=== PATIENT | female | born 1950 | race American Indian/Alaskan Native ===

== ENCOUNTER 2016-12-04 19:12 | Observation (INO) | payer MEDICARE, OTHER ==
[2016-12-04] MEDS ORDERED: Albuterol-Ipratrop 3 mg / 0.5 (3 ml) UD IH STA (19:40)
--- NOTE | 2016-12-04 19:49 | ED PDOC ---
Arrival/HPI <Connor Britt - Last Filed: 12/04/16 21:14> - General Historian: Patient, Family - History of Present Illness Time/Duration: > week Symptom Onset: Gradual Symptom Course: Worsening Quality: Unable to Describe Severity Level: Moderate, Severe <Elisabeth Augustin - Last Filed: 12/04/16 21:36> - General Chief Complaint: Shortness Of Breath Time Seen by Provider: 12/04/16 19:16 - History of Present Illness Narrative History of Present Illness (Text): 12/04/16 19:45 65F w/PMH sig for DM, HTN, CAD s/p stents, LBP w/SC defibrillator, obesity, HLD , MD x 2, TIA x 9, arthritis, bursitis, peripheral neuropathy, hx sepsis evaluated for SOB x 1 week. Pt states that she was seen/evaluated by PMD 1 week ago with dx of URI and Rx for cough syrup. Pt reports that the cough syrup made her feel "loopy" so she stopped taking it. Her breathing worsened over last 24H, pt was not able to lay flat without severe SOB. SOB aggravated by movement. Admits to decreased appetite, urinary incontinence (copious, clear), multiple episodes of emesis after PO intake (non bloody), productive cough ( yellow thick mucus), stabbing throat pain with cough, fatigue, generalized muscle weakness, decreased ambulation, insomnia, numbness/tingling of extremities (chronic) and diaphoresis. Denies fevers, chills, MAZA, Chest pain, ab pain. PMH: DM, HTN, CAD s/p stents, LBP w/SC defibrillator, obesity, HLD, MD x 2, TIA x 9, arthritis, bursitis, peripheral neuropathy, hx sepsis, Iesha's syndrome PSH: Spinal cord defibrillator, cardiac stents, R eye surgery, L ankle surgery, R ovarian cyst surgery All: Lyrica, pregabalin SH: Admits to ~1ppd x multiple years, denies ETOH or illicit drug use PMD: Ingram (Elisabeth Augustin) Modifying Factors (Text): 12/04/16 19:45 Sitting up makes breathing better (Elisabeth Augustin) Associated Symptoms (Text): 12/04/16 19:44 cough, throat pain with coughing, decreased ambulation, fatigue, weakness, decreased appetite, nausea/vomiting, orthopnea (Elisabeth Augustin) Past Medical History - Provider Review Nursing Documentation Reviewed: Yes - Travel History Have you recently traveled outside [place] w/in the past 3 mons?: Yes - Infectious Disease Hx of Infectious Diseases: None - Reproductive Menopause: Yes - Cardiac Hx Cardiac Disorders: Yes (CAD, ami stemi 06/2013, mi x3) Hx Angina: Yes Hx Circulatory Problems: Yes Hx Hypertension: Yes Hx Pacemaker: No - Pulmonary Hx Respiratory Disorders: No - Neurological Hx Neurological Disorder: No HX Cerebrovascular Accident: Yes (x9 no deficits) Other/Comment: 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, heuropathy hands and legs - HEENT Hx HEENT Disorder: No (RIGHT EYE SURGERY -LAZY EYE) Other/Comment: 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, pt c/o teeth are brreaking since 2012 - Renal Hx Renal Disorder: No - Endocrine/Metabolic Hx Endocrine Disorders: Yes Hx Diabetes Mellitus Type 1: Yes (dx 12/2012) Other/Comment: was in a diabetic coma 9 days 2013 - Hematological/Oncological Hx Blood Disorders: No - Integumentary Hx Dermatological Disorder: No - Musculoskeletal/Rheumatological Hx Falls: No - Gastrointestinal Hx Gastrointestinal Disorders: No - Psychiatric Hx Psychophysiologic Disorder: No Hx Substance Use: No - Surgical History Hx Cardiac Catheterization: Yes Hx Musculoskeletal Surgery: Yes (LEFT ANKLE SURGERY) Other/Comment: hardware removed left ankle, ovarian cyst removed, spinal cord implant styimulator at [facility] [address] sow - Anesthesia Hx Anesthesia Reactions: Yes Hx Malignant Hyperthermia: No - Suicidal Assessment Feels Threatened In Home Enviroment: No <Elisabeth Augustin - Last Filed: 12/04/16 21:36> Family/Social History - Physician Review Nursing Documentation Reviewed: Yes Family/Social History: No Known Family HX Smoking Status: Heavy Smoker > 10 Cigarettes Daily Hx Alcohol Use: No Hx Substance Use: No <Elisabeth Augustin - Last Filed: 12/04/16 21:36> Allergies/Home Meds <Connor Britt - Last Filed: 12/04/16 21:14> <Elisabeth Augustin - Last Filed: 12/04/16 21:36> Allergies/Adverse Reactions: Allergies pregabalin [From Lyrica] Allergy (Verified 12/04/16 19:27) ANGIOEDEMA Home Medications: Home Meds Medication Instructions Recorded Confirmed Clopidogrel [Plavix] 75 mg PO DAILY 10/22/14 12/04/16 Allopurinol [Zyloprim] 100 mg PO DAILY 12/04/16 12/04/16 Aspirin [Ecotrin] 81 mg PO DAILY 12/04/16 12/04/16 Biotin 5,000 mcg PO DAILY 12/04/16 12/04/16 Cyanocobalamin [Vitamin B12 1000 2,500 mcg PO QWK 12/04/16 12/04/16 mcg Tab] Gabapentin [Neurontin] 600 mg PO DAILY 12/04/16 12/04/16 Lactobacillus Combination No.8 1 each PO DAILY 12/04/16 12/04/16 [Adult Probiotic] Magnesium Oxide [Pharmassure 500 mg PO DAILY 12/04/16 12/04/16 Magnesium] Metoprolol Tartrate [Lopressor] 50 mg PO BID 12/04/16 12/04/16 Omeprazole 40 mg PO DAILY 12/04/16 12/04/16 Simvastatin [Zocor] 20 mg PO DAILY 12/04/16 12/04/16 Sitagliptin Phos/Metformin HCl 1 each PO DAILY 12/04/16 12/04/16 [Janumet 50-1,000 mg Tablet] Valsartan 320 mg PO DAILY 12/04/16 12/04/16 Review of Systems - Physician Review All systems were reviewed & negative as marked: Yes - Review of Systems Constitutional: Fatigue. absent: Normal, Fevers Eyes: absent: Vision Changes ENT: Sore Throat. absent: Normal, Rhinorrhea Respiratory: SOB, Cough, Sputum. absent: Normal, Wheezing Cardiovascular: Orthopnea. absent: Normal, Chest Pain, Palpitations Gastrointestinal: Nausea, Vomiting, Appetite Changes. absent: Normal, Abdominal Pain, Constipation, Diarrhea, Hematochezia, Hematemesis Genitourinary Female: Frequency, Other (urinary incontinence) Musculoskeletal: Myalgias Skin: Normal. absent: Rash Neurological: Focal Weakness (Right eye muscles (chronic)). absent: Headache, Dizziness Endocrine: Diaphoresis, Polyuria. absent: Normal <Elisabeth Augustin - Last Filed: 12/04/16 21:36> Physical Exam Vital Signs Reviewed: Yes Temperature: Afebrile Blood Pressure: Hypertensive Pulse: Regular Respiratory Rate: Normal Appearance: Positive for: Non-Toxic, Comfortable Pain Distress: Mild Mental Status: Positive for: Alert and Oriented X 3 - Systems Exam Head: Present: Atraumatic, Normocephalic Pupils: Present: PERRL Extroacular Muscles: No: EOMI (Right eye ptosis) Conjunctiva: Present: Normal Mouth: Present: Moist Mucous Membranes, Normal Lips, Normal Teeth Nose (External): Present: Atraumatic Neck: Present: Normal Range of Motion. No: MIDLINE TENDERNESS, Paraspinal Tenderness Respiratory/Chest: Present: Good Air Exchange, Decreased Breath Sounds, Rales ( at bases). No: Clear to Auscultation, Respiratory Distress, Accessory Muscle Use, Wheezes, Rhonchi Cardiovascular: Present: Regular Rate and Rhythm, Normal S1, S2. No: Murmurs Abdomen: Present: Normal Bowel Sounds. No: Tenderness, Distention (obese), Peritoneal Signs, Guarding Upper Extremity: Present: Normal Inspection. No: Cyanosis, Edema Lower Extremity: Present: Normal Inspection, Edema (scant B/L). No: Tenderness , Swelling Neurological: Present: GCS=15, CN II-XII Intact, Speech Normal Skin: Present: Warm, Dry, Normal Color. No: Rashes Psychiatric: Present: Alert, Oriented x 3, Normal Insight, Normal Concentration <Elisabeth Augustin - Last Filed: 12/04/16 21:36> Vital Signs Temp Pulse Resp BP Pulse Ox 12/04/16 19:30 19 12/04/16 19:28 97.5 F L 72 19 140/92 H 99 Medical Decision Making - EKG Interpretation Interpreted by ED Physician: Yes Type: 12 lead EKG <Connor Britt - Last Filed: 12/04/16 21:14> <Elisabeth Augustin - Last Filed: 12/04/16 21:36> ED Course and Treatment: Impression: Pt seen and evaluated with medical physiologist. Pt, whose past medical history includes diabetes, hypertension, CAD s/p stents, hyperlipidemia, MD, and TIA, presented for shortness for breath for 1 week. Aware and agree with HPI, clinical findings, plan, and management. Plan: -- EKG -- Chest X-ray -- Labs, BNP, cardiac enzymes -- Urinalysis -- Duoneb -- Reassess and disposition (Connor Britt) 12/04/16 19:42 Pt seen/evaluated, will do heart failure work up vs. COPD exacerbation vs PNA. 12/04/16 21:03 Labs evaluated- pt with elevated BNP, continues with SOB/orthopnea, indeterminant troponin, will reach out to Dr. Ingram regarding admission for further medical management. 12/04/16 21:[address] Valentin, who is covering for Dr. Ingram, who accepts patient to his service with instructions to have the medical physiologist see/evaluate the patient for admission. 12/04/16 21:36 Spoke to medical physiologist regarding conversation with Dr. Valentin. resident caregiver agrees to see patient. (Elisabeth Augustin) - Lab Interpretations Lab Results: 12/04/16 20:20 12/04/16 20:20 Lab Results 12/04/16 20:20: Influenza Typ A,B (EIA) Negative for flu a/b 12/04/16 20:20: Sodium 141, Potassium 4.3, Chloride 98, Carbon Dioxide 32, Anion Gap 15, BUN 15, Creatinine 0.8, Est GFR ( Amer) > 60, Est GFR (Non- Af Amer) > 60, Random Glucose 153 H, Calcium 9.7, Phosphorus 2.5, Magnesium 1.5 L, Total Bilirubin 0.9, AST 39 H, ALT 37, Alkaline Phosphatase 104, Lactate Dehydrogenase 533, Total Creatine Kinase 30 L, Troponin I 0.04 D, NT-Pro-B Natriuret Pep 624 H, Total Protein 7.2, Albumin 3.8, Globulin 3.5, Albumin/ Globulin Ratio 1.1 12/04/16 20:20: WBC 7.5 D, RBC 4.75, Hgb 9.8 L, Hct 35.2 L, MCV 74.1 L, MCH 20.6 L, MCHC 27.8 L, RDW 20.0 H, Plt Count 326, MPV 10.5, Gran % 70.8 H, Lymph % (Auto) 23.3, Lamb % (Auto) 5.3, Eos % (Auto) 0.5 L, Baso % (Auto) 0.1, Gran # 5.32, Lymph # 1.8, Lamb # 0.4, Eos # 0.0, Baso # 0.01 - RAD Interpretation Radiology Orders: 12/04/16 19:40 CHEST PORTABLE [RAD] Stat - Medication Orders Current Medication Orders: Magnesium Sulfate/Dextrose (Magnesium Sulfate 1 Gm/100 Ml D5w) 1 gm in 100 mls @ 100 mls/hr IVPB ONCE ONE Stop: 12/04/16 21:59 Discontinued Medications Albuterol/Ipratropium (Duoneb 3 Mg/0.5 Mg (3 Ml) Ud) 3 ml IH STAT STA Stop: 12/04/16 19:41 Last Admin: 12/04/16 20:17 Dose: 3 ml - PA / MACHINE REPAIRER MAINTENANCE / Resident Statement / has reviewed & agrees with the documentation as recorded. / has examined the patient and agrees with the treatment plan. <Connor Britt - Last Filed: 12/04/16 21:14> Disposition/Present on Arrival <Connor Britt - Last Filed: 12/04/16 21:14> - Present on Arrival Any Indicators Present on Arrival: No History of DVT/PE: No History of Uncontrolled Diabetes: No Urinary Catheter: No History of Decub. Ulcer: No History Surgical Site Infection Following: None - Disposition Have Diagnosis and Disposition been Completed?: Yes Disposition Time: 21:35 Patient Plan: Admission <Elisabeth Augustin - Last Filed: 12/04/16 21:36> - Disposition Diagnosis: CHF (congestive heart failure) Disposition: HOSPITALIZED Condition: FAIR Discharge Instructions (ExitCare): Heart Failure (ED) Referrals: Carmita Hayward MD [Primary Care Provider] - Follow up with primary Forms: [employer] (Faroese)
[2016-12-04 20:32] LABS: BASO # 0.01 K/mm3 (0.0-2.0); BASO % 0.1 % (0.0-3.0); EOS % 0.5 % (1.5-5.0); GRAN # 5.32 (1.4-6.5); GRAN % 70.8 % (50.0-68.0); HEMATOCRIT 35.2 % (36.0-48.0); LYMPH # 1.8 (1.2-3.4); LYMPH % 23.3 % (22.0-35.0); MEAN CELL VOLUME 74.1 fl (80.0-105.0); MEAN CORPUSCULAR HEMOGLOBIN 20.6 pg (25.0-35.0); MEAN CORPUSCULAR HGB CONC 27.8 g/dl (31.0-37.0); MEAN PLATELET VOLUME 10.5 fl (7.0-11.0); MONO # 0.4 (0.1-0.6); MONO % 5.3 % (1.0-6.0); WHITE BLOOD COUNT 7.5 10^3/ul (4.5-11.0)
[2016-12-04 20:44] LABS: ALB/GLOB RATIO 1.1 (1.1-1.8); ALKALINE PHOSPHATASE 104 U/L (38-126); ALT/SGPT 37 U/L (7-56); AST/SGOT 39 U/L (14-36); BILIRUBIN,TOTAL 0.9 mg/dL (0.2-1.3); BLOOD UREA NITROGEN 15 mg/dL (7-21); CALCIUM 9.7 mg/dL (8.4-10.5); CARBON DIOXIDE 32 mmol/L (21-33); CHLORIDE 98 mmol/L (98-107); GFR AFRICAN-AMERICAN > 60; GLUCOSE,RANDOM 153 mg/dL (70-110); MAGNESIUM 1.5 mg/dL (1.7-2.2); PHOSPHOROUS 2.5 mg/dL (2.5-4.5); POTASSIUM 4.3 mmol/L (3.6-5.0); SODIUM 141 mmol/L (132-148); TOTAL PROTEIN 7.2 g/dL (5.8-8.3)
[2016-12-04 20:53] LABS: TROPONIN I 0.04 ng/mL
[2016-12-04] MEDS ORDERED: Magnesium Sulfate 1 gm in D5W 1 GM/100 ML BAG IVPB ONE (21:00)
[2016-12-04 22:00] LABS: URINE BILIRUBIN NEGATIVE (NEGATIVE); URINE BLOOD NEGATIVE (NEGATIVE); URINE GLUCOSE (UA) NEGATIVE (NEGATIVE); URINE KETONE NEGATIVE (NEGATIVE); URINE LEUKOCYTE ESTERASE TRACE Leu/uL (NEGATIVE); URINE PROTEIN NEGATIVE mg/dL (<30 mg/dL)
[2016-12-04 22:04] LABS: URINE APPEARANCE CLEAR (CLEAR); URINE COLOR YELLOW (YELLOW)
[2016-12-04 22:08] LABS: URINE RBC 0 - 2 /hpf (0-2)
[2016-12-04 22:09] LABS: URINE AMORPHOUS SEDIMENT FEW; URINE BACTERIA MANY (NEG)
[2016-12-04 22:43] VITALS: BMI 40.3
[2016-12-04] MEDS ORDERED: Pneumococcal 23-Valent Vaccine IM ONE (22:44)
--- NOTE | 2016-12-04 23:11 | CP.PCM.HP ---
History of Present Illness - History of Present Illness History of Present Illness: Chief Complaint Shortness of breath HPI Patient is a 65 year old black female with a past medical history significant for several strokes, 3 ME's, iesha's syndrome, syphillis, HTN, NIDDM, dyslipidemia, gout who [place] [facility] [place] with complaints of shortness of breath. Patient states the shortness of breath began two weeks ago but was relieved when sleeping in certain positions at night. A few days later she states she experienced an episode of vomiting and diarrhea which was relieved by a medication she took. When the shortness of breath worsened she decided to see her PMD Dr. Ingram where she was diagnosed with a URI viral infection. Patient states later that she was given a z pack and cough medication. On 12/03 patient states that it she was getting ready to go to bed and was unable to find a position in bed that would relieve her shortness of breath. She then decided to sit up and states that this didn't relieve the shortness of breath to the extent that it normally does. She states that later that night she also experienced a productive cough that produced thick clear phlegm, as well as a sticky brown substance that came from her mouth which she hadn't experienced since she was last septic. These symptoms in conjunction with her shortness of breath is what prompted the patient to come to the ED. She denies n/v/d/f/chills, abdominal pain, chest pain, dizziness, headache. PMD: Dr. Ingram PMH: NIDDM, HTN, CAD (3 ME's), CVA (several), Dyslipidemia, Iesha's syndrome, past syphillis, obesity Past Surgical History: Heart stent, Left ankle surgery, Right eye surgery, Right ovarian cyst surgery, Spinal cord stimulator surgery Allergies: Lyrica Social history: tobacco use, denies alcohol and drugs Family history: non-contributory Present on Admission - Present on Admission Any Indicators Present on Admission: No Review of Systems - Constitutional Constitutional: Chills, Fever, Headache. absent: Anorexia - EENT Eyes: absent: Blind Spots, Blurred Vision Ears: absent: Decreased Hearing, Ear Discharge Nose/Mouth/Throat: absent: Nasal Congestion, Nasal Discharge - Cardiovascular Cardiovascular: Dyspnea, Orthopnea. absent: Chest Pain - Respiratory Respiratory: Cough, Dyspnea, Excessive Mucous Production - Gastrointestinal Gastrointestinal: Nausea. absent: Abdominal Pain, Diarrhea - Genitourinary Genitourinary: absent: Difficulty Urinating, Dysuria - Musculoskeletal Musculoskeletal: Back Pain. absent: Muscle Weakness, Myalgias - Neurological Neurological: absent: Abnormal Speech, Behavioral Changes - Psychiatric Psychiatric: absent: Anxiety, Auditory Hallucinations Past Patient History - Infectious Disease Hx of Infectious Diseases: None - Past Social History Smoking Status: Heavy Smoker > 10 Cigarettes Daily - CARDIAC Hx Cardiac Disorders: Yes (CAD, ami stemi 06/2013, mi x3) Hx Angina: Yes Hx Circulatory Problems: Yes Hx Hypercholesterolemia: Yes Hx Hypertension: Yes Hx Pacemaker: No Hx Peripheral Edema: Yes (+1 ble) - PULMONARY Hx Respiratory Disorders: No - NEUROLOGICAL Hx Neurological Disorder: No Hx Transient Ischemic Attacks (TIA): Yes (x9 no deficits) Other/Comment: 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,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, heuropathy top of feet, thighs, hands - HEENT Hx HEENT Problems: No (RIGHT EYE SURGERY -LAZY EYE) Other/Comment: 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, pt c/o teeth are brreaking since 2012, wears eyeglasses - RENAL Hx Chronic Kidney Disease: No - ENDOCRINE/METABOLIC Hx Endocrine Disorders: Yes Hx Diabetes Mellitus Type 1: Yes (dx 12/2012) Other/Comment: was in a diabetic coma 9 days 2013 - HEMATOLOGICAL/ONCOLOGICAL Hx Blood Disorders: No - INTEGUMENTARY Hx Dermatological Problems: No - MUSCULOSKELETAL/RHEUMATOLOGICAL Hx Musculoskeletal Disorders: Yes (bursitis) Hx Arthritis: Yes Hx Back Pain: Yes Hx Falls: No Hx Herniated Disk: Yes (cervical spine) Hx Unsteady Gait: Yes (cane) - GASTROINTESTINAL Hx Gastrointestinal Disorders: Yes (obese) - GENITOURINARY/GYNECOLOGICAL Hx Incontinence: Yes (uses depends) - PSYCHIATRIC Hx Psychophysiologic Disorder: No Hx Substance Use: No - SURGICAL HISTORY Hx Cardiac Catheterization: Yes Hx Musculoskeletal Surgery: Yes (LEFT ANKLE SURGERY from fall) Other/Comment: hardware removed left ankle, ovarian cyst removed, spinal cord implant styimulator at [facility] [address] sow - ANESTHESIA Hx Anesthesia Reactions: Yes Hx Malignant Hyperthermia: No Meds Allergies/Adverse Reactions: Allergies Allergy/AdvReac Type Severity Reaction Status Date / Time pregabalin [From Lyrica] Allergy ANGIOEDEMA Verified 12/04/16 19:27 Physical Exam - Head Exam Head Exam: ATRAUMATIC, NORMAL INSPECTION, NORMOCEPHALIC - Eye Exam Eye Exam: EOMI, Normal appearance - ENT Exam ENT Exam: Mucous Membranes Moist, Normal Exam - Neck Exam Neck exam: Positive for: Normal Inspection - Respiratory Exam Respiratory Exam: Decreased Breath Sounds, Rhonchi. absent: Chest Wall Tenderness, Rales, Wheezes - Cardiovascular Exam Cardiovascular Exam: REGULAR RHYTHM, +S1, +S2 - GI/Abdominal Exam GI & Abdominal Exam: Normal Bowel Sounds, Soft - Extremities Exam Extremities exam: Positive for: pedal edema (b/l). Negative for: tenderness - Neurological Exam Neurological exam: Alert, CN II-XII Intact, Oriented x3 - Psychiatric Exam Psychiatric exam: Normal Affect, Normal Mood - Skin Skin Exam: Normal Color, Warm Results - Vital Signs Recent Vital Signs: Last Vital Signs Temp 97.5 F L 12/04/16 22:21 Pulse 72 12/04/16 22:21 Resp 19 12/04/16 22:21 BP 140/92 H 12/04/16 22:21 Pulse Ox 99 12/04/16 19:28 - Labs Result Diagrams: 12/04/16 20:20 12/04/16 20:20 Labs: Laboratory Results - last 24 hr 12/04/16 21:44 Urine Color Yellow Urine Appearance Clear Urine pH 7.0 Ur Specific Cooper <= 1.005 Urine Protein Negative Urine Glucose (UA) Negative Urine Ketones Negative Urine Blood Negative Urine Nitrate Negative Urine Bilirubin Negative Urine Urobilinogen 4.0 H Ur Leukocyte Esterase Trace H Urine RBC 0 - 2 Urine WBC 5 - 10 Ur Epithelial Cells 3 - 4 Amorphous Sediment Few Urine Bacteria Many Urine Other Uyeast Assessment & Plan - Assessment and Plan (Free Text) Assessment: Assessment 65 year old female with 50 year smokin history presenting with shortness of breath and elevated BNP Plan 1. CHF exacerbation - BNP 624 - Cardiology consulted; recs appreciated - I&O continue to monitor - Heart healthy diet - Head above bed 30 degrees 2. HTN - Continue with Valsartan - Continue with metoprolol 3. Dyslipidemia - Continue with atorvastatin 4. Gout - Continue with allopurinol 5. CVA history - continue with plavix 6. NIDDM - Sliding scale insulin low regimen DVT/GI prohpylaxis - Heparin/Protonix
[2016-12-05 03:20] VITALS: RESP 19; TEMP 98.3; O2SAT 98
[2016-12-05 06:59] LABS: BASO # 0.01 K/mm3 (0.0-2.0); BASO % 0.1 % (0.0-3.0); EOS # 0.1 (0.0-0.7); GRAN # 4.8 (1.4-6.5); GRAN % 67.3 % (50.0-68.0); HEMATOCRIT 33.5 % (36.0-48.0); LYMPH # 1.8 (1.2-3.4); LYMPH % 25.6 % (22.0-35.0); MEAN CELL VOLUME 75.1 fl (80.0-105.0); MEAN CORPUSCULAR HEMOGLOBIN 20.4 pg (25.0-35.0); MEAN CORPUSCULAR HGB CONC 27.2 g/dl (31.0-37.0); MEAN PLATELET VOLUME 10.3 fl (7.0-11.0); MONO # 0.4 (0.1-0.6); RED CELL DISTRIBUTION WIDTH 19.9 % (11.5-14.5); WHITE BLOOD COUNT 7.1 10^3/ul (4.5-11.0)
[2016-12-05 07:10] LABS: ALKALINE PHOSPHATASE 87 U/L (38-126); ALT/SGPT 22 U/L (7-56); AST/SGOT 30 U/L (14-36); BILIRUBIN,TOTAL 0.6 mg/dL (0.2-1.3); BLOOD UREA NITROGEN 14 mg/dL (7-21); CALCIUM 9.1 mg/dL (8.4-10.5); CARBON DIOXIDE 34 mmol/L (21-33); CHLORIDE 101 mmol/L (98-107); CHOLESTEROL 104 mg/dL (130-200); GFR AFRICAN-AMERICAN > 60; GLUCOSE,RANDOM 101 mg/dL (70-110); MAGNESIUM 1.7 mg/dL (1.7-2.2); PHOSPHOROUS 4.8 mg/dL (2.5-4.5); POTASSIUM 4.5 mmol/L (3.6-5.0); SODIUM 142 mmol/L (132-148); TOTAL PROTEIN 6.5 g/dL (5.8-8.3)
[2016-12-05] MEDS: Insulin Reg-LOW-Coverage SC SCH ×2 (08:33→12:13)
--- NOTE | 2016-12-05 10:45 | RAD ---
HISTORY: Shortness of breath. Technique: Single view portable semi erect @ 20:08 COMPARISON: 02/11/2016 FINDINGS: LUNGS: No active pulmonary disease. PLEURA: No significant pleural effusion identified, no pneumothorax apparent. CARDIOVASCULAR: Cardiomegaly. No evidence of acute, significant cardiovascular disease. OSSEOUS STRUCTURES: No significant abnormalities. VISUALIZED UPPER ABDOMEN: Normal. OTHER FINDINGS: Neuro stimulator device again identified. IMPRESSION: No active disease. No significant interval change compared to the prior examination(s). Please note: No preliminary report/ innterpretation of this examination provided by emergency department personnel.
[2016-12-05 11:01] VITALS: BP 109/56; PULSE 65
--- NOTE | 2016-12-05 12:19 | CP.PCM.DIS ---
Provider - Provider Date of Admission: 12/04/16 21:31 Attending physician: Brain Bryant MD Primary care physician: Carmita Hayward MD Time Spent in preparation of Discharge (in minutes): 70 Hospital Course - Lab Results Lab Results: Most Recent Lab Values WBC 7.1 10^3/ul (4.5-11.0) 12/05/16 06:00 RBC 4.46 10^6/uL (3.5-6.1) 12/05/16 06:00 Hgb 9.1 g/dL (12.0-16.0) L 12/05/16 06:00 Hct 33.5 % (36.0-48.0) L 12/05/16 06:00 MCV 75.1 fl (80.0-105.0) L 12/05/16 06:00 MCH 20.4 pg (25.0-35.0) L 12/05/16 06:00 MCHC 27.2 g/dl (31.0-37.0) L 12/05/16 06:00 RDW 19.9 % (11.5-14.5) H 12/05/16 06:00 Plt Count 265 10^3/uL (120.0-450.0) 12/05/16 06:00 MPV 10.3 fl (7.0-11.0) 12/05/16 06:00 Gran % 67.3 % (50.0-68.0) 12/05/16 06:00 Lymph % (Auto) 25.6 % (22.0-35.0) 12/05/16 06:00 [place] % (Auto) 6.0 % (1.0-6.0) 12/05/16 06:00 Eos % (Auto) 1.0 % (1.5-5.0) L 12/05/16 06:00 Baso % (Auto) 0.1 % (0.0-3.0) 12/05/16 06:00 Gran # 4.80 (1.4-6.5) 12/05/16 06:00 Lymph # 1.8 (1.2-3.4) 12/05/16 06:00 [place] # 0.4 (0.1-0.6) 12/05/16 06:00 Eos # 0.1 (0.0-0.7) 12/05/16 06:00 Baso # 0.01 K/mm3 (0.0-2.0) 12/05/16 06:00 Sodium 142 mmol/L (132-148) 12/05/16 06:00 Potassium 4.5 mmol/L (3.6-5.0) 12/05/16 06:00 Chloride 101 mmol/L (98-107) 12/05/16 06:00 Carbon Dioxide 34 mmol/L (21-33) H 12/05/16 06:00 Anion Gap 12 (10-20) 12/05/16 06:00 BUN 14 mg/dL (7-21) 12/05/16 06:00 Creatinine 0.9 mg/dL (0.7-1.2) 12/05/16 06:00 Est GFR ( Amer) > 60 12/05/16 06:00 Est GFR (Non-Af Amer) > 60 12/05/16 06:00 Random Glucose 101 mg/dL (70-110) 12/05/16 06:00 Calcium 9.1 mg/dL (8.4-10.5) 12/05/16 06:00 Phosphorus 4.8 mg/dL (2.5-4.5) H 12/05/16 06:00 Magnesium 1.7 mg/dL (1.7-2.2) 12/05/16 06:00 Total Bilirubin 0.6 mg/dL (0.2-1.3) 12/05/16 06:00 AST 30 U/L (14-36) 12/05/16 06:00 ALT 22 U/L (7-56) 12/05/16 06:00 Alkaline Phosphatase 87 U/L (38-126) 12/05/16 06:00 Lactate Dehydrogenase 533 U/L (333-699) 12/04/16 20:20 Total Creatine Kinase 30 U/L (35-230) L 12/04/16 20:20 Troponin I 0.04 ng/mL 12/05/16 10:30 NT-Pro-B Natriuret Pep 449 pg/mL (0-450) 12/05/16 06:00 Total Protein 6.5 g/dL (5.8-8.3) 12/05/16 06:00 Albumin 3.3 g/dL (3.0-4.8) 12/05/16 06:00 Globulin 3.2 gm/dL 12/05/16 06:00 Albumin/Globulin Ratio 1.0 (1.1-1.8) L 12/05/16 06:00 Triglycerides 86 mg/dL (35-160) 12/05/16 06:00 Cholesterol 104 mg/dL (130-200) L 12/05/16 06:00 LDL Cholesterol Direct 70 mg/dL (0-129) 12/05/16 06:00 HDL Cholesterol 21 mg/dL (29-60) L 12/05/16 06:00 TSH 3rd Generation 1.06 mIU/mL (0.46-4.68) 12/05/16 06:00 Urine Color Yellow (YELLOW) 12/04/16 21:44 Urine Appearance Clear (CLEAR) 12/04/16 21:44 Urine pH 7.0 (4.7-8.0) 12/04/16 21:44 Ur Specific [place] <= 1.005 (1.005-1.035) 12/04/16 21:44 Urine Protein Negative mg/dL (<30 mg/dL) 12/04/16 21:44 Urine Glucose (UA) Negative mg/dL (NEGATIVE) 12/04/16 21:44 Urine Ketones Negative mg/dL (NEGATIVE) 12/04/16 21:44 Urine Blood Negative (NEGATIVE) 12/04/16 21:44 Urine Nitrate Negative (NEGATIVE) 12/04/16 21:44 Urine Bilirubin Negative (NEGATIVE) 12/04/16 21:44 Urine Urobilinogen 4.0 E.U./dL (<1 E.U./dL) H 12/04/16 21:44 Ur Leukocyte Esterase Trace [place]/uL (NEGATIVE) H 12/04/16 21:44 Urine RBC 0 - 2 /hpf (0-2) 12/04/16 21:44 Urine WBC 5 - 10 /hpf (0-6) 12/04/16 21:44 Ur Epithelial Cells 3 - 4 /hpf (0-5) 12/04/16 21:44 Amorphous Sediment Few 12/04/16 21:44 Urine Bacteria Many (NEG) 12/04/16 21:44 Urine Other Uyeast 12/04/16 21:44 Influenza Typ A,B (EIA) Negative for flu a/b (NEGATIVE) 12/04/16 20:20 - Hospital Course Hospital Course: Patient is a 65 year old black female with a past medical history significant for several strokes, 3 MD's, tex's syndrome, syphillis, HTN, NIDDM, dyslipidemia, gout who presents to the [facility] ED 12/04/16 with complaints of shortness of breath. Patient states the shortness of breath began two weeks ago but was relieved when sleeping in certain positions at night. A few days later she states she experienced an episode of vomiting and diarrhea which was relieved by a medication she took. When the shortness of breath worsened she decided to see her PMD Dr. Ingram where she was diagnosed with a URI viral infection. Patient states later that she was given a z pack and cough medication. On 12/03 patient states that it she was getting ready to go to bed and was unable to find a position in bed that would relieve her shortness of breath. She then decided to sit up and states that this didn't relieve the shortness of breath to the extent that it normally does. She states that later that night she also experienced a productive cough that produced thick clear phlegm, as well as a sticky brown substance that came from her mouth which she hadn't experienced since she was last septic. These symptoms in conjunction with her shortness of breath is what prompted the patient to come to the ED. She denied n/v/d/f/chills, abdominal pain, chest pain, dizziness, headache. Patient was admitted and evaluated. She was continued on home medications for HTN, HLD, GOUT, CVA history and placed on sliding scale with insulin. Xray was done and obtained and did not show any active pulmonary disease. Echo cardiogram was done. She stated she felt fine and her condition improved. She was instructed to see Dr. Bryant in the office tomorrow and to follow up with Dr. Richter for her lungs. She was aware of the plan and her questions and concerns were addressed. Discharge Exam - Head Exam Head Exam: ATRAUMATIC, NORMAL INSPECTION, NORMOCEPHALIC Discharge Plan - Follow Up Plan Condition: FAIR Disposition: HOME/ ROUTINE Additional Instructions: Follow up tomorrow in Dr. Bryant office, and follow up with Dr. Kenny in a week. Referrals: Carmita Hayward MD [Primary Care Provider] - Landon Richter MD [Staff Provider] - Brain Bryant MD [Staff Provider] -
--- NOTE | 2016-12-05 19:47 | CARD ---
APPROVED REPORT EKG Measurement Heart [id number] <Conclusion> Normal sinus rhythm T wave abnormality, consider anterolateral ischemia Prolonged QT Abnormal ECG
== END 2016-12-05 13:32 | disposition home or self-care (01) ==
LOC: ED 19:12 → ERH 21:31 → 2RNO 22:48
PROVIDERS: ADMIT Internal Medicine; ATTEND Internal Medicine
DX: I11.0 Hypertensive heart disease with heart failure (principal); I50.9 Heart failure, unspecified; I25.10 Atherosclerotic heart disease of native coronary artery without angina pectoris; E78.5 Hyperlipidemia, unspecified; E11.9 Type 2 diabetes mellitus without complications; G90.2 Horner's syndrome; E66.9 Obesity, unspecified; M10.9 Gout, unspecified; Z79.84 Long term (current) use of oral hypoglycemic drugs; Z95.5 Presence of coronary angioplasty implant and graft; Z86.73 Personal history of transient ischemic attack (TIA), and cerebral infarction without residual deficits; Z68.38 Body mass index [BMI] 38.0-38.9, adult; I25.2 Old myocardial infarction
CPT/HCPCS: 36415; 71010; 80053; 80061; 81001; 82550; 82948; 83615; 83735; 83880; 84100; 84443; 84484; 85025; 87086; 87804; 93005; 94640; 96365; 96375; 99285; C9113; G0378; J3475

== ENCOUNTER 2018-06-30 14:09 | Observation (INO) | payer MEDICARE, OTHER ==
[2018-06-30 14:34] VITALS: BMI 35.2
--- NOTE | 2018-06-30 15:11 | ED PDOC ---
Arrival/HPI - General Chief Complaint: Shortness Of Breath Time Seen by Provider: 06/30/18 14:52 Historian: Patient - History of Present Illness Narrative History of Present Illness (Text): 06/30/18 15:19 67 year old female, with hx of DM, HTN, CAD s/p stents, LBP w/SC defibrillator, HLD, [place] x 2, TIA x 9 presents to the emergency department with chief complaint of shortness of breath. Patient was sent to the ED by Dr. Ingram for low oxygen level. Patient endorses difficulty breathing, endorses tiredness, and congestion. Patient reports she does not feel sick, but endorses a slight cold for a couple of days. Patient denies cough, denies fever. PCP: Dr. 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, pt c/o teeth are brreaking since 2013, wears eyeglasses - Renal Hx Renal Disorder: No - Endocrine/Metabolic Hx Diabetes Mellitus Type 1: Yes (dx 12/2012) - Hematological/Oncological Hx Blood Disorders: No - Integumentary Hx Dermatological Disorder: No - Musculoskeletal/Rheumatological Hx Arthritis: Yes - Gastrointestinal Hx Gastrointestinal Disorders: Yes (obese) - Genitourinary/Gynecological Hx Incontinence: Yes (uses depends) Other/Comment: ovarian cyst removed - Psychiatric Hx Psychophysiologic Disorder: No Hx Substance Use: No - Surgical History Hx Cardiac Catheterization: Yes Hx Eye Surgery: Yes Hx Musculoskeletal Surgery: Yes (LEFT ANKLE SURGERY from fall) Other/Comment: hardware removed left ankle, ovarian cyst removed, spinal cord implant styimulator at [facility] [address] sow - Anesthesia Hx Anesthesia: Yes Hx Anesthesia Reactions: Yes (pt doesn't remember) Hx Malignant Hyperthermia: No - Suicidal Assessment Feels Threatened In Home Enviroment: No Family/Social History - Physician Review Nursing Documentation Reviewed: Yes Family/Social History: Unknown Family HX Smoking Status: Heavy Smoker > 10 Cigarettes Daily Hx Alcohol Use: No Hx Substance Use: No Allergies/Home Meds Allergies/Adverse Reactions: Allergies pregabalin [From Lyrica] Allergy (Verified 06/30/18 14:34) ANGIOEDEMA Home Medications: Home Meds Medication Instructions Recorded Confirmed Aspirin [Ecotrin] 81 mg PO DAILY 12/04/16 06/30/18 Cyanocobalamin [Vitamin B12 1000 2,500 mcg PO QWK 12/04/16 06/30/18 mcg Tab] Gabapentin [Neurontin] 1,800 mg PO DAILY 12/04/16 06/30/18 Metoprolol Tartrate [Lopressor] 50 mg PO BID 12/04/16 06/30/18 Omeprazole 40 mg PO DAILY 12/04/16 06/30/18 Simvastatin [Zocor] 20 mg PO DAILY 12/04/16 06/30/18 Allopurinol [Zyloprim] 100 mg PO 06/30/18 Clopidogrel [Plavix] 75 mg PO DAILY 06/30/18 06/30/18 Lamotrigine 25 mg PO BID 06/30/18 06/30/18 Sitagliptin Phos/Metformin HCl 1 each PO DAILY 06/30/18 06/30/18 [Janumet 50-1,000 mg Tablet] Review of Systems - Physician Review All systems were reviewed & negative as marked: Yes - Review of Systems Constitutional: absent: Fevers ENT: Sinus Congestion Respiratory: SOB. absent: Cough Physical Exam - Physical Exam Narrative Physical Exam (Text): 06/30/18 15:10 Gen: VS reviewed, alert, well developed, well nourished, nontoxic, mild distress Eye: EOMI, PERRL Neck: no JVD, supple, no adenopathy CV: regular rate, regular rhythm, no rubs,no murmur, S1, S2 Pulm: no distress, clear to auscultation, no wheeze, no rhonchi, breath sounds equal, no rales Abd: soft, nontender, no guarding, no rebound, no rigidity Ext: no edema Skin: good color, no rash, no cyanosis Psych: responds appropriately to questions, normal affect Neuro: oriented x3, CN2-12 intact grossly, motor intact, sensation intact Physical exam is normal except: Tachypneic Vital Signs Temp Pulse Resp BP Pulse Ox 06/30/18 14:37 98.5 F 89 19 158/81 H 95 Medical Decision Making ED Course and Treatment: 06/30/18 15:08 Impression: 67 year old female presents to the ED with shortness of breath. Differential Diagnosis included but are not limited to: Plan: -- EKG -- ABG -- Labs -- Iv fluids -- Oxygen therapy -- Reassess and disposition Prior Visits: Notes and results from previous visits were reviewed. Progress Notes: 06/30/18 19:[address] shields. patient to be admitted for atypical cardiopulm symptoms, borderline elevated troponin, rule out acs. observation status. - EKG Interpretation EKG Interpretation (Text): 06/30/18 15:40 ekg my read: sinus tach at 105 bpm, nml qrs, nml axis, nonspecigiv lateral t wave abn Interpreted by ED Physician: Yes - Scribe Statement The provider has reviewed the documentation as recorded by the Scribe Sean Glover All medical record entries made by the Scribe were at my direction and personally dictated by me. I have reviewed the chart and agree that the record accurately reflects my personal performance of the history, physical exam, medical decision making, and the department course for this patient. I have also personally directed, reviewed, and agree with the discharge instructions and disposition. Disposition/Present on Arrival - Present on Arrival Any Indicators Present on Arrival: No History of DVT/PE: No History of Uncontrolled Diabetes: Yes Urinary Catheter: No History of Decub. Ulcer: No History Surgical Site Infection Following: None - Disposition Have Diagnosis and Disposition been Completed?: Yes Diagnosis: Elevated troponin Disposition: HOSPITALIZED Disposition Time: 19:02 Patient Plan: Observation Condition: STABLE Referrals: Mainor Ingram DO [Primary Care Provider] - Follow up with primary Forms: [employer] (Mongolian)
[2018-06-30 15:40] LABS: ARTERIAL BLOOD GAS HCO3 29.8 mmol/L (21-28); ARTERIAL BLOOD GAS HEMOGLOBIN 8.8 g/dL (11.7-17.4); ARTERIAL BLOOD GAS O2 CAPACITY 11.7 mL/dl (16-24); ARTERIAL BLOOD GAS O2 CONTENT 5.4 ML/dl (15-23); ARTERIAL BLOOD GAS O2 SAT 46.3 % (95-98); ARTERIAL BLOOD GAS PCO2 46 mm/Hg (35-45); ARTERIAL BLOOD GAS PH 7.42 (7.35-7.45); ARTERIAL BLOOD GAS TCO2 31.2 mmol.L (22-28)
[2018-06-30 15:55] LABS: BASO # 0.01 K/mm3 (0.0-2.0); BASO % 0.1 % (0.0-3.0); EOS % 0.2 % (1.5-5.0); HEMOGLOBIN 11.1 g/dL (12.0-16.0); LYMPH # 1.4 (1.2-3.4); LYMPH % 17.3 % (22.0-35.0); MEAN CELL VOLUME 91.1 fl (80.0-105.0); MEAN CORPUSCULAR HEMOGLOBIN 26.8 pg (25.0-35.0); MEAN CORPUSCULAR HGB CONC 29.4 g/dl (31.0-37.0); MEAN PLATELET VOLUME 11.4 fl (7.0-11.0); MONO # 0.4 (0.1-0.6); MONO % 5.3 % (1.0-6.0); RBC 4.14 10^6/uL (3.5-6.1); WHITE BLOOD COUNT 8.3 10^3/uL (4.5-11.0)
[2018-06-30 16:06] LABS: ARTERIAL BLOOD GAS HCO3 27.8 mmol/L (21-28); ARTERIAL BLOOD GAS HEMOGLOBIN 8.8 g/dL (11.7-17.4); ARTERIAL BLOOD GAS O2 CAPACITY 11.7 mL/dl (16-24); ARTERIAL BLOOD GAS O2 SAT 85.3 % (95-98); ARTERIAL BLOOD GAS PCO2 41 mm/Hg (35-45); ARTERIAL BLOOD GAS PH 7.44 (7.35-7.45); ARTERIAL BLOOD GAS TCO2 29.1 mmol.L (22-28)
[2018-06-30 16:11] LABS: INR 1.09; PARTIAL THROMBOPLASTIN TIME 40.7 Seconds (26.9-38.3); PROTHROMBIN TIME 12.1 SECONDS (9.4-12.5)
[2018-06-30 16:12] LABS: ALB/GLOB RATIO 1.1 (1.1-1.8); ALBUMIN 4.1 g/dL (3.0-4.8); ALT/SGPT 15 U/L (7-56); AST/SGOT 31 U/L (14-36); BLOOD UREA NITROGEN 9 mg/dL (7-21); CALCIUM 9.5 mg/dL (8.4-10.5); GFR NON-AFRICAN AMERICAN > 60
[2018-06-30 16:21] LABS: B-TYPE NATRIURETIC PEPTIDE 1290 pg/mL (0-450); TROPONIN I 0.06 ng/mL
[2018-06-30] MEDS ORDERED: Iohexol 350 MG/100 ML VIAL ONE (17:13)
--- NOTE | 2018-06-30 17:39 | CT ---
Date of service: 06/30/2018 PROCEDURE: CT Chest with contrast (Pulmonary Angiogram) HISTORY: pulmonary embolism COMPARISON: 12/04/2016 single-view chest. 10/22/2014 CT pulmonary angiogram. TECHNIQUE: Axial computed tomography images were obtained of the chest in the pulmonary arterial phase of enhancement. Coronal and sagittal reformatted images were created and reviewed. Intravenous contrast dose: 100 cc Omnipaque 350. Mean Hounsfield value in the main pulmonary artery: 243.84 Radiation dose: Total exam DLP = 503.94 mGy-cm. This CT exam was performed using one or more of the following dose reduction techniques: Automated exposure control, adjustment of the mA and/or kV according to patient size, and/or use of iterative reconstruction technique. FINDINGS: PULMONARY ARTERIES: Unremarkable. No pulmonary embolism. AORTA: No acute findings. No thoracic aortic aneurysm. Atherosclerotic calcification and mural plaque present. Findings are seen throughout the aorta which is non aneurysmal. LUNGS: Minimal atelectasis right lower lobe. PLEURAL SPACES: Trace right pleural effusion. HEART: Unremarkable. No cardiomegaly. No significant pericardial effusion. LYMPH NODES: No lymphadenopathy. BONES, CHEST WALL: Unremarkable. No fracture or destructive lesion OTHER FINDINGS: Asymmetrical enlargement right thyroid lobe compared to left. Similar finding identified previously. Neuro stimulator device identified in the thoracic spinal canal. IMPRESSION: Unremarkable CT pulmonary angiogram. No pulmonary embolus. Additional benign and/or incidental findings described above.
[2018-06-30] MEDS ORDERED: Pantoprazole 40 mg EC Tab PO STA (18:48)
--- NOTE | 2018-06-30 22:08 | CARD ---
APPROVED REPORT Date of service: 06/30/2018 EKG Measurement Heart [id number] <Conclusion> Sinus tachycardia ST & T wave abnormalities Abnormal ECG
[2018-06-30] MEDS ORDERED: Potassium Chloride 20 mEq ER Tab PO ONE (22:22)
[2018-07-01] MEDS ORDERED: Potassium Chloride 20 mEq ER Tab PO ONE (00:45)
[2018-07-01 02:05] VITALS: RESP 20
[2018-07-01 05:35] VITALS: TEMP 98.9; O2SAT 92
[2018-07-01 09:13] LABS: ALB/GLOB RATIO 1.1 (1.1-1.8); ALBUMIN 3.6 g/dL (3.0-4.8); ALT/SGPT 18 U/L (7-56); AST/SGOT 33 U/L (14-36); BLOOD UREA NITROGEN 6 mg/dL (7-21); GFR NON-AFRICAN AMERICAN > 60
[2018-07-01] MEDS ORDERED: Pantoprazole 40 mg EC Tab PO SCH (10:00)
[2018-07-01 10:21] VITALS: BP 156/79; PULSE 91
--- NOTE | 2018-07-01 11:30 | CON ---
DATE: 07/01/2018 PULMONARY CONSULT NOTE REFERRING PHYSICIAN: Mainor Ingram DO REASON FOR CONSULT: Shortness of breath. HISTORY OF PRESENT ILLNESS: This is a 67-year-old female with past medical history significant for diabetes mellitus, hypertension, coronary artery disease, status post stents, myocardial infarction x2, TIA, Iesha's syndrome, syphilis, gout, who presented to the emergency department with complaint of shortness of breath. The patient was sent to the emergency department by Dr. Ingram for low oxygen level. The patient while in the emergency room complained of difficulty breathing, tiredness, congestion. The patient reports that she had a cold for the past 2 to 3 days prior to developing shortness of breath. Today, the patient seen sitting up at bedside. Reports feeling better when she did yesterday, no cough, no shortness of breath at this time, does have some nasal congestion, state that she did get short of breath when getting out of bed this morning. The patient also reports that she snores, was tested sleep apnea years ago. Has history of SARIAH for which she reports not being able to tolerate mask and machine. PAST MEDICAL HISTORY: CHF, COPD, asthma, CVA, myocardial infarction, Iesha's syndrome, syphilis, hypertension, noninsulin-dependent diabetes mellitus, hyperlipidemia, gout, coronary artery disease, status post stent placement, defibrillator, GERD, SARIAH. FAMILY HISTORY: Coronary artery disease and hypertension in her family. SOCIAL HISTORY: Former smoker, reports quitting 3 months ago. No EtOH abuse. No illicit drug use. ALLERGIES: PREGABALIN. MEDICATIONS: Reviewed. Allopurinol 100 mg 3 times a day, aspirin 81 mg daily, Lipitor 10 mg at bedtime, Plavix 75 mg daily, Lamictal 25 mg twice a day, metformin 1800 mg at breakfast, metoprolol tartrate 50 mg twice a day, Protonix 40 mg daily, Januvia 1 mg at breakfast. REVIEW OF SYSTEMS: No headache, cough, shortness of breath, chest pain, abdominal pain, nausea, vomiting, diarrhea, leg pain or leg swelling reported. Reports that she did get short of breath when getting out bed this morning. Reports that she has nasal congestion. She does snore. PHYSICAL EXAMINATION: GENERAL: No acute distress. VITAL SIGNS: Blood pressure 157/80, pulse 85, temperature 98.9, oxygen saturation 92%. HEENT: Moist mucous membranes. Mallampati score of 4. Crowded airway. NECK: Supple. No JVD. Short and thick. CARDIOVASCULAR: S1 and S2. RESPIRATORY: Few scattered rhonchi. ABDOMEN: Soft and nontender. No distention. No organomegaly. EXTREMITIES: No bilateral lower extremity edema. NEUROLOGIC: Awake, alert and verbal. Following commands. LABORATORY DATA: Reviewed. WBC 8.3, RBC 4.14, hemoglobin 11.1, hematocrit 37.7, and platelets 272. PT 12.1, INR 1.09, APTT 40.7, D-dimer 670, PCO2 of 41, PO2 of 46, HCO3 of 27. ABG; pH 7.44, FiO2 21. The patient's oxygen saturation was 95% on room air. Sodium 142, potassium 3.9, chloride 102, carbon dioxide 33, anion gap 11, BUN 6, creatinine 0.7, GFR greater than 60, random glucose 129, calcium 9.0, total bilirubin 1.2, AST 33, ALT 18, alkaline phosphatase 99, troponin 0.06, proBNP 1290, total protein 6.9, albumin 3.6, globulin 3.3, and albumin-globulin ration 1.1. EKG shows sinus tachycardia. Chest CT shows no pulmonary embolism, minimal atelectasis right lower lobe trace, right pleural effusion, asymmetrical right thyroid lobe compared to left. IMPRESSION AND PLAN: Chronic lung disease exacerbation, possibly exacerbated by viral illness, hypertension, diabetes, coronary artery disease, status post stents, hyperlipidemia, history of myocardial infarction, history of transient ischemic attacks, echocardiogram from 12/2017 reviewed showed ejected fraction of 64.1, right ventricular systolic pressure 60, showing pulmonary hypertension, diastolic dysfunction. We will place the patient on doxycycline 100 mg twice a day for chronic lung disease exacerbation. We will place the patient on prednisone 20 mg to taper off in the next 4 to 5 days. We will placed her on inhaled bronchodilators, Brovana and Pulmicort nebulizer treatments. We will order echocardiogram to be done to evaluate pulmonary hypertension, heart failure. Recommended the patient have sleep study as outpatient to rule out sleep apnea syndrome as we suspect that continuous positive airway pressure, the patient may have obstructive sleep apnea syndrome. Recommend the patient have full pulmonary function test to assess extent of chronic lung disease. Continue gastric prophylaxis. ABGs from yesterday were reviewed, believed that it may have possibly been venous blood. The patient's O2 was 46, but oxygen saturation recorded at that time, it was 95% on room air. This patient was seen and examined with Dr. Hudson. Discussed assessment and plan as described above. This patient was seen and examined with Andrae Eckert, nurse practitioner. Discussed assessment and plan as described above. Thank you for this consult and we will follow with you. Andrae Eckert APN Tessy Hudson MD MTDAsiya
[2018-07-01] MEDS ORDERED: Budesonide 0.5 mg/2 ml Inhal Susp UD IH SCH (20:00)
[2018-07-01] MEDS ORDERED: Arformoterol 15 mcg/2 ml Inh Sol IH SCH (20:00)
--- NOTE | 2018-07-01 21:15 | HP ---
DATE OF EXAM: 07/01/2018 HISTORY OF PRESENT ILLNESS: I saw her in my office and she was not saturating above 79%, 77%. I could not get her up to that, anything past 80%, and I sent her to the emergency room in [facility]. There she was given oxygen and they got her up to 93%, 94%. She is a 67-year-old female who came into my office short of breath with a low oxygen saturation. I sent her to the emergency room. PAST MEDICAL HISTORY: Diabetes, hypertension, CAD status post stent, low back pain with an ICD defibrillator, high cholesterol, [place] x2, TIA x9, uncomfortable. She had a right eye surgery with a lazy eye, third nerve cranial palsy, Iesha syndrome, teeth are breaking, diabetes, obesity, arthritis, incontinence of urine. She had an ovarian cyst removed, cardiac catheterizations, eye surgery, left ankle surgery from a fall, hardware removed from the left ankle, spinal cord implant stimulator. FAMILY HISTORY: Unknown family history. SOCIAL HISTORY: She still smokes cigarettes. No alcohol. No drugs. ALLERGIES: LYRICA, ECOTRIN, VITAMIN B12, NEURONTIN, LOPRESSOR, OMEPRAZOLE, ZOCOR, ZYLOPRIM, PLAVIX, LAMOTRIGINE, METFORMIN, JANUMET. REVIEW OF SYSTEMS: She is short of breath. No acute vision or hearing changes but old. No sore throat. No neck pain. No chest pain or palpitations. She is especially short of breath if she walks. No cough. Abdomen is soft and nontender. Positive bowel sounds. No guarding. No rebound. No CVA tenderness. No nausea or vomiting, constipation or diarrhea. Extremities; no edema. Back pain. PHYSICAL EXAMINATION: GENERAL: She is a little bit uncomfortable, not breathing well. She is well-developed, well-nourished, nontoxic, mild distress. VITAL SIGNS: She has a 98.5 temperature, 89 pulse, 19 respiratory rate, 158/81 blood pressure, and 95% O2 sat. HEENT: Extraocular muscles intact. Pupils equally reactive to light and accommodation. Throat is moist. NECK: Supple. No JVD. No palpable lymphadenopathy cervically. Thyroid midline. HEART: Regular rate. Normal S1, S2. LUNGS: Decreased breath sounds bilaterally. No wheezes, no rhonchi nor rales. Does not take in a deep breath in. ABDOMEN: Soft, nontender. Positive bowel sounds. No guarding. No rebound or CVA tenderness. Morbidly obese. EXTREMITIES: No edema. SKIN: Intact. Fair turgor. No rashes appreciative. No ulcers appreciative. NEUROLOGIC: Alert and oriented x3. Normal affect. Cranial nerves II through XII grossly intact. MEDICATIONS: She will be on Brovana, Doryx, Ecotrin, Glucophage, Januvia, Lamictal, Lipitor, Lopressor, Plavix, prednisone, Protonix, Pulmicort, Zyloprim. LABORATORY DATA: She had multiple tests done. She had a CT scan of the chest, unremarkable. She had an echocardiogram, sinus tachycardia. She has a 8.3 white count, 11.1 hemoglobin, 37.7 hematocrit, with 272 platelets. Workup on INR and the D-dimer was 670 and that is why they did the CT scan angiogram. Oxygen sat was 27% when she came in, 46% later. She has a 142 sodium, potassium is 3.2, it was replaced and it went up to 3.9, BUN is 6, creatinine 0.7, GFR is greater than 60, sugar is 129, calcium is 9, total bili is 1.2. AST is 31, ALT is 15, alk phos 114. Troponin I is 0.06. BNP was 1290 without edema. Total protein is 7.8. CONSULTATIONS: A consult with Pulmonary that said we will do an outpatient obstructive sleep apnea test. IMPRESSION AND PLAN: She is being put in for hypoxemia. She will have consults with Pulmonary and Cardiology. Oxygen. Hopefully she will do well. She is on observation. Mainor Ingram DO
--- NOTE | 2018-07-02 03:37 | DS ---
HISTORY: She was here for observation for hypoxemia. She did very well. She did not need oxygen. PHYSICAL EXAMINATION: VITAL SIGNS: She has a 98.9 temperature, 85 pulse, /80 blood pressure, 20 respiratory rate, and oxygen sats between 92 and 94. GENERAL: She is comfortable, not short of breath. She is walking well, back to her baseline. HEENT: Head: Atraumatic, normocephalic. HEART: Regular rate. LUNGS: Decreased breath sounds, but clear. ABDOMEN: Soft, obese. EXTREMITIES: No edema. LABORATORY DATA: She has a 142 sodium, potassium 3.9, BUN 6, creatinine 0.7, GFR greater than 60, sugar is 129, calcium is 9, total bili is 1.2. AST is 33, ALT is 18, alk phos 99. Total protein is 6.9. Overall, she is much better. She wants to go home. She is feeling better. She will follow up in the outpatient with Pulmonary, Cardiology, and myself. If she needs anything, she will call me. I am hoping that she will do very well. She is here for observation overnight for hypoxemia, which improved. Mainor Ingram DO MTDD
== END 2018-07-01 14:41 | disposition home or self-care (01) ==
LOC: ED 14:09 → ERH 19:00 → 2RSO 21:10
PROVIDERS: ADMIT Family Medicine; ATTEND Family Medicine
DX: I11.0 Hypertensive heart disease with heart failure (principal); I50.9 Heart failure, unspecified; I25.10 Atherosclerotic heart disease of native coronary artery without angina pectoris; I25.2 Old myocardial infarction; I27.20 Pulmonary hypertension, unspecified; J44.9 Chronic obstructive pulmonary disease, unspecified; K21.9 Gastro-esophageal reflux disease without esophagitis; R09.02 Hypoxemia; G47.33 Obstructive sleep apnea (adult) (pediatric); Z86.73 Personal history of transient ischemic attack (TIA), and cerebral infarction without residual deficits; E78.5 Hyperlipidemia, unspecified; E78.00 Pure hypercholesterolemia, unspecified; E11.9 Type 2 diabetes mellitus without complications; J45.909 Unspecified asthma, uncomplicated; F17.210 Nicotine dependence, cigarettes, uncomplicated; Z79.02 Long term (current) use of antithrombotics/antiplatelets; Z79.82 Long term (current) use of aspirin; Z79.84 Long term (current) use of oral hypoglycemic drugs; Z82.49 Family history of ischemic heart disease and other diseases of the circulatory system; Z95.5 Presence of coronary angioplasty implant and graft
CPT/HCPCS: 36415; 36600; 71275; 80053; 82803; 83880; 84484; 85025; 85378; 85610; 85730; 93005; 99285; G0378; Q9967